=== PATIENT | female | born 1955 | race Hispanic/Latino ===

== ENCOUNTER → 2019-03-17 | Outpatient (CLI) | payer OTHER, MEDICARE ==
[~2019-03-17] MED LIST: ASPI-1197 PO; BLAC160C PO; CYCL10TA7 PO; DOXY100T2 PO; DULO60CA44 PO; HYDR-4030 PO; LISI10TA7 PO; LORA-705 PO; NAPR-1174 PO; SULF1TAB42 PO; TYL3 PO
== END | disposition home or self-care (01) ==
LOC: RAH 11:22
PROVIDERS: ATTEND Internal Medicine
DX: M17.11 Unilateral primary osteoarthritis, right knee (principal); M85.861 Other specified disorders of bone density and structure, right lower leg
CPT/HCPCS: 73562

== ENCOUNTER → 2019-10-12 | Outpatient (CLI) | payer OTHER, MEDICARE | END | disposition home or self-care (01) | LOC: RAH 15:45 | PROVIDERS: ATTEND Internal Medicine | DX: J06.9 Acute upper respiratory infection, unspecified (principal); R05 Cough | CPT/HCPCS: 71046 ==

== ENCOUNTER 2020-08-27 12:15 | Emergency (ER) | payer OTHER, MEDICARE ==
[~2020-08-27 12:15] MED LIST changes: +LORA-699 PO; -LORA-705 PO
[2020-08-27] MEDS ORDERED: KETOROLAC TROMETHAMINE 60 MG/2 ML VIAL ONE (12:31)
[2020-08-27] MEDS ORDERED: DIAZEPAM 5 MG TABLET ONE (12:32)
== END 2020-08-27 12:51 | disposition home or self-care (01) ==
LOC: EDH 12:15
DX: M54.41 Lumbago with sciatica, right side (principal); I10 Essential (primary) hypertension; F32.9 Major depressive disorder, single episode, unspecified; Z88.8 Allergy status to other drugs, medicaments and biological substances; Z79.899 Other long term (current) drug therapy; Z87.891 Personal history of nicotine dependence; Z98.890 Other specified postprocedural states
CPT/HCPCS: 96372; 99283; J1885